=== PATIENT | male | born 1995 | race Caucasian/White ===

== ENCOUNTER 2024-10-30 01:27 | Day surgery (SDC) | payer BC, SELFPAY ==
[2024-10-26 08:18] VITALS: BMI 21.5
--- NOTE | 2024-10-26 08:25 | PC.NURSE ---
Report to the Outpatient Waiting Room, entrance under the green pavilion located off [facility], at time _0600_ on date _[id number]_. Planned Procedure Time: _0730_.? Time changes happen often and if your time is changed the preop area will call you the afternoon before. - You and your visitor will be asked to self-screen and do not enter if you have any COVID symptoms. Please call surgeon if you need to reschedule. - A mask is optional within the hospital at this time. Patients may have clear liquids (water, carbonated beverages, clear teas, apple juice) until 3 hours prior to surgery with a maximum of 20 ounces. - No food from midnight until time of surgery and no smoking, or chewing tobacco (or any form of nicotine). No chewing gum, candy or mints. Take only the following medications with a SIP of water on the morning of surgery: __None DO NOT STOP ANY OF YOUR OTHER PRESCRIPTION MEDICATIONS PRIOR TO SURGERY EXCEPT THE FOLLOWING Hold all vitamins and supplements for 3 days per anesthesiologist. Medications to discontinue per physician Date to take last dose Please no make-up, nail belizean, hairspray, perfume, deodorant, or body powder the day of surgery.? No jewelry (including any body piercings) or valuables the day of surgery, leave them at home.? Please take a shower or bath the night before, or the morning of, surgery with an antibacterial soap.? Wear comfortable, loose fitting clothing.? - Jewelry must be removed prior to entering the operating room.? Rings and piercings that are not removed may be cut off. - The hospital will not accept responsibility for valuables.? - Please leave all valuables, including medications, at home the day of surgery. If you are going home after surgery, a licensed cdl b driver must drive you home.? - NO public transportation without another adult if you receive anesthesia. - We recommend that an adult stay with you for 24 hours following discharge. - We also recommend that you do not drive, make important decision, drink alcoholic beverages, or take any drugs that were not prescribed by your health care provider for at least 24 hours after your discharge time. Follow any additional instructions given to you from your surgeon. Telephone instructions given to __Drew___and asked if any additional questions and then verbalized understanding. Patient advised to call surgeon office or pre surgery nurse liaison [phone] if any additional questions.
[2024-10-30] VITALS (9 sets, daily range): BP systolic 107–124; BP diastolic 69–79; PULSE 56–97; RESP 12–18; TEMP 36.3–36.6; O2SAT 98–100
[2024-10-30] MEDS: LACTATED RINGERS 1,000 ML 30 ML IV CONT ×2 (06:30→08:54)
[2024-10-30] MEDS: ACETAMINOPHEN 500 MG TABLET 1000 MG PO (06:37)
--- NOTE | 2024-10-30 06:48 | P.PNAN_ITS ---
Anes - Initial Pre Proc Eval Procedure: Operation Date: 10/30/24 07:30 Proposed Procedures p Bilateral Maxillary Antrostomy, - Kike Veliz MD s Bilateral Turbinate Reduction, - Kike Veliz MD s Septoplasty - Kike Veliz MD Date/Time: 10/30/24 06:48 Surgeon: Kike Veliz MD Pre Op Diagnosis: deviated septum, chronic sinusitis, turbinate hyp Patient Data Age: 29 Gender: M Height: 1.78 m Weight: 70.1 kg Last Vital Signs Temp 36.6 C 10/30/24 06:20 Pulse 57 L 10/30/24 06:20 Resp 18 10/30/24 06:20 BP 122/76 10/30/24 06:20 Pulse Ox 100 10/30/24 06:20 O2 Del Method Room Air 10/30/24 06:20 Allergies Allergy/AdvReac Type Severity Reaction Status Date / Time adhesive tape Allergy Mild Rash Verified 10/30/24 06:22 Home Medications ?Medication ?Instructions ?Recorded ?Confirmed ?Type No Home Medications 10/26/24 10/26/24 History Patient hx anesthesia problems: none Family hx anesthesia problems: none Results Review: All pre-operative results and documents have been reviewed as part of the pre- operative evaluation. [facility] Past Medical History Medical History (Updated 10/30/24 @ 06:49 by Hugo Becker MD) Healthy adult Social History Social History Smoking status: Former smoker Alcohol intake: current Living arrangements: with family Spiritual care concerns: No Anes - Eval Final PreProcedure Day of Procedure 10/30/24 06:48 Patient weight: normal Heart: regular rate and rhythm Lungs: clear to auscultation Airway: Mallampati scale class 1 Neurological: alert and oriented Last oral intake: >/= 8 hours ASA classification: I Emergent: no Anesthetic plan: proceed Anesthesia type and monitoring: general ETT and standard monitoring Results Review: All pre-operative results and documents have been reviewed as part of the pre- operative evaluation. Informed Consent: The patient's anesthetic plan and its attendant risks and benefits were discussed with the patient/family/POA. Questions were solicited and answers provided to the satisfaction of the patient/family/POA.
[2024-10-30] MEDS: OXYMETAZOLINE HCL 0.05% NAS 15 ML BTL (*BKC) 1 SPRAY NASAL (07:05)
--- NOTE | 2024-10-30 07:09 | WPDHPUPDATE1 ---
History and Physical Update Update Date/Time: 10/30/24 07:09 History and Physical has been reviewed, including an updated exam of the patient. There are NO changes in the patient's condition. Risks, benefits, and alternatives have been discussed and questions answered. Patient agrees to proceed with procedure.
[2024-10-30] MEDS: LIDO 1%/EPINEPHRINE 1:100,000 50 ML VIAL INFILTRATE (07:26)
[2024-10-30] MEDS: MUPIROCIN 2% OINT 22 GM TUBE 1 APPLIC TOPICAL (08:27)
--- NOTE | 2024-10-30 08:47 | W.PM.PROC2 ---
Procedure Note - Detailed Date of Procedure 10/30/24 Pre-op Diagnosis deviated septum, chronic sinusitis, turbinate hyp Post-op Diagnosis Same Procedure Performed Septoplasty, turbinoplasty, bilateral maxillary antrostomy Surgeon Kike Veliz MD Anesthesia General Indications chronic sinusitis, nasal dyspnea Findings Severe left septal deviation, bilateral erickson splints and nasopore placed Description of Procedure On the date of procedure the patient was met in the preoperative area and risk and benefits of the procedure reviewed with the patient as documented in the H&P and they elected to proceed with surgery. Patient was brought back to the operating room by the anesthesia team and underwent general endotracheal anesthesia. Once an adequate plane of anesthesia was obtained a timeout was performed to assure the patient identification the patient here to be performed were correct. They were.The patient was then prepped and draped in the normal fashion for endoscopic sinus surgery. The diffusion image guidance system was calibrated and used for the entire case. Afrin-soaked pledgets were placed in the nasal cavities bilaterally. The entire case was performed under endoscopic visualization. Nasal endoscopy was performed at the beginning of the case. 1% lidocaine with 1:100,000 epinephrine was then injected into the root of the middle turbinate and lateral nasal wall. The left side was narrowed due to septal deviation.? Thus, septoplasty was required.? A left hemitransfixion incision was made in the left caudal septum and a mucoperichondrial flap was elevated in the usual fashion. The flap was elevated under endoscopic visualization and the remainder of the case was performed with endoscopic assistance. Using a D-knife, an incision was made through the cartilaginous septum with care to preserve the appropriate caudal and dorsal ?L-strut? of cartilage. The cartilage was then disarticulated from the bony-cartilaginous junction and the deviated cartilage was removed. Further deviated bone and cartilage was removed from the maxillary crest and posterior bony septum with care to avoid injury to the mucoperichondrial flap using a combination of dissection and Herson forceps. Once this was completed, the hemitransfixion incision was closed using simple interrupted 4-0 chromic suture. A quilting stitch to reapproximate the mucoperichondrial flaps was then placed using 4-0 plain gut suture on a Dre needle. Attention was then directed towards the right side. The middle turbinate was medialized and the osteomeatal complex was identified with a tatum probe. Using a 90 degree backbiter, the uncinate process was reflected anteriorly and removed using a combination of sharp and powered dissection. The maxillary antrostomy was then created and widened by identifying the natural ostia and opening the sinus with straight nilesh-cut forceps, backbiter, and microdebrider. Next, the left maxillary antrostomy was carried out in identical fashion. ?No clinical evidence of CSF throughout the case.? With the sinuses opened and clear, nasopore packing was placed in the middle meatus bilaterally. Hemostasis was ensured. Lastly, the bilateral inferior turbinates were reduced submucosally using 2mm microdebrider and then outfractured with a sayer elevator. This significantly opened the airway. Erickson splints were then placed to secure the septum in the midline.? At this point, the procedure was concluded. Care the patient was transferred back to the anesthesia team and the patient was awoke in the operating room and transferred back to the PACU in stable condition. Kike Veliz M.D. Estimated Blood Loss 10 Drains No Packing Yes (nasopore and erickson splints) Pathology None sent Complications No immediate complications Condition Stable Disposition PACU
[2024-10-30] MEDS: fentaNYL CITRATE INJ (*CRX) 100 MCG/2 ML VIAL 25 MCG IV PUSH ×2 (09:27→09:33)
== END 2024-10-30 11:19 | disposition home or self-care (01) ==
PROVIDERS: Visit Provider Otolaryngology
PROC: (CPT 31256; principal; 2024-10-30 07:30)
PROC: (CPT 31256; 2024-10-30 07:30)
PROC: (CPT 30520; 2024-10-30 07:30)
DX: J34.2 Deviated nasal septum (principal); J34.3 Hypertrophy of nasal turbinates; J32.9 Chronic sinusitis, unspecified
CPT/HCPCS: 31256; 61782; 30520; 30140; A9270; J1100; J2003; J2004; J2250; J2405; J2704; J3010; J7050; J7120